=== PATIENT | female | born 1985 | race Native Hawaiian/Other Pacific Islander ===

== ENCOUNTER 2017-01-13 20:33 | Emergency (ER) | payer BC ==
[~2017-01-13] VITALS: Ht 172.7 cm; Wt 86.2 kg
[2017-01-13 21:49] LABS: PLATELET COUNT 286 K/uL (152-353)
[2017-01-13 21:57] LABS: POTASSIUM 3.4 mmol/L (3.6-5.2); SODIUM 139 mmol/L (136-145)
[2017-01-13 23:22] VITALS: BP 119/82; TEMP 98.5
== END 2017-01-13 23:22 | disposition home or self-care (01) ==
LOC: ED 20:33
PROVIDERS: Emergency Medicine
DX: K52.89 Other specified noninfective gastroenteritis and colitis (principal); A08.8 Other specified intestinal infections
CPT/HCPCS: 36415; 80053; 81000; 85027; 87015; 87045; 87205; 87324; 87449; 87899; 96361; 96374; 96375; 99284; J2405; J3490

== ENCOUNTER 2018-12-10 09:02 | Outpatient (CLI) | payer BC ==
[2018-12-10 09:45] LABS: PLATELET COUNT 215 K/uL (152-353)
[2018-12-10 09:55] LABS: POTASSIUM 4.2 mmol/L (3.6-5.2)
== END 2018-12-10 19:16 | disposition home or self-care (01) ==
LOC: LABW 09:02
PROVIDERS: Psychiatry & Neurology Psychiatry
DX: F31.81 Bipolar II disorder (principal); F41.1 Generalized anxiety disorder
CPT/HCPCS: 36415; 80053; 80061; 84443; 85027

== ENCOUNTER 2019-02-14 13:07 | Emergency (ER) | payer BC ==
[~2019-02-14] VITALS: Ht 172.7 cm; Wt 86.2 kg
[2019-02-14 13:32] VITALS: TEMP 97.9
[2019-02-14 15:20] VITALS: BP 128/64
== END 2019-02-14 15:20 | disposition home or self-care (01) ==
LOC: ED 13:07
PROC: 2W3RX1Z Immobilization of Left Lower Leg using Splint (ICD-10-PCS; principal; 2019-02-14)
DX: S92.352A Displaced fracture of fifth metatarsal bone, left foot, initial encounter for closed fracture (principal); X50.1XXA Overexertion from prolonged static or awkward postures, initial encounter
CPT/HCPCS: 99283

== ENCOUNTER 2019-03-07 09:42 | Outpatient (CLI) | payer BC ==
[2019-03-07 11:05] LABS: PLATELET COUNT 256 K/uL (152-353)
== END 2019-03-07 23:20 | disposition home or self-care (01) ==
LOC: RAD 09:42
PROVIDERS: Nurse Practitioner Family
DX: M85.89 Other specified disorders of bone density and structure, multiple sites (principal); M17.11 Unilateral primary osteoarthritis, right knee; M79.7 Fibromyalgia
CPT/HCPCS: 36415; 80053; 85027; 85651; 86140

== ENCOUNTER 2019-04-24 08:42 | Outpatient (CLI) | payer BC | END 2019-04-24 23:27 | disposition home or self-care (01) | LOC: LABW 08:42 | DX: N95.1 Menopausal and female climacteric states (principal); R53.83 Other fatigue | CPT/HCPCS: 36415; 82670; 83001; 83002; 84144; 84439; 84443 ==

== ENCOUNTER 2019-12-16 09:27 | Outpatient (CLI) | payer BC ==
[2019-12-16 10:11] LABS: PLATELET COUNT 210 K/uL (152-353)
== END 2019-12-16 22:03 | disposition home or self-care (01) ==
LOC: LABW 09:27
PROVIDERS: Nurse Practitioner Family
DX: F41.1 Generalized anxiety disorder (principal); F31.81 Bipolar II disorder; M25.561 Pain in right knee; M25.551 Pain in right hip
CPT/HCPCS: 36415; 80053; 80061; 84443; 85027

== ENCOUNTER 2020-06-12 09:42 | Outpatient (CLI) | payer BC ==
[2020-06-12 10:02] LABS: PLATELET COUNT 229 K/uL (152-353)
[2020-06-12 10:19] LABS: POTASSIUM 3.9 mmol/L (3.6-5.2)
== END 2020-06-12 20:03 | disposition home or self-care (01) ==
LOC: LABW 09:42
PROVIDERS: ATTEND Psychiatry & Neurology Psychiatry
DX: F41.1 Generalized anxiety disorder (principal); F31.81 Bipolar II disorder; Z79.899 Other long term (current) drug therapy
CPT/HCPCS: 36415; 80053; 80061; 84443; 85027

== ENCOUNTER 2020-09-24 13:05 | Outpatient (CLI) | payer BC | END 2020-09-24 19:36 | disposition home or self-care (01) | LOC: RAD 13:05 | PROVIDERS: ATTEND Nurse Practitioner Family | DX: M25.511 Pain in right shoulder (principal); M25.531 Pain in right wrist; M25.561 Pain in right knee; M70.51 Other bursitis of knee, right knee; M70.61 Trochanteric bursitis, right hip; M79.671 Pain in right foot ==

== ENCOUNTER 2022-10-12 09:14 | Outpatient (CLI) | payer BC | END 2022-10-12 19:02 | disposition home or self-care (01) | LOC: MAMMO 09:14 | PROVIDERS: ATTEND Nurse Practitioner Family | DX: Z12.31 Encounter for screening mammogram for malignant neoplasm of breast (principal) ==

== ENCOUNTER 2022-11-22 11:38 | Emergency (ER) | payer BC ==
[~2022-11-22] VITALS: Ht 172.7 cm; Wt 79.4 kg
[2022-11-22 11:44] VITALS: BP 143/88; TEMP 98.4
[2022-11-22 12:20] LABS: PLATELET COUNT 239 K/uL (152-353)
[2022-11-22 12:30] LABS: SODIUM 138 mmol/L (136-145)
== END 2022-11-22 13:26 | disposition home or self-care (01) ==
LOC: ED 11:38
PROVIDERS: Emergency Medicine
DX: R07.89 Other chest pain (principal); F41.9 Anxiety disorder, unspecified; I10 Essential (primary) hypertension
CPT/HCPCS: 36415; 80053; 84484; 85027; 85379; 93005; 96372; 96374; 99284; J2405